=== PATIENT | female | born 1990 | race Caucasian/White ===

== ENCOUNTER → 2017-05-09 | Outpatient (CLI) | payer OTHER ==
[~2017-05-09] MED LIST: IBUP80TA PO; VITAPRTA PO
[2017-05-09 17:47] LABS: BASO # 0.1 10^3/uL (0.0-0.2); BASO % 0.5 % (0.0-1.0); EOS # 0.2 10^3/uL (0.0-0.50); EOS % 2.1 % (0.0-3.0); IMMATURE GRANULOCYTE % 0.5 % (0-0); LYMPH # 1.7 10^3/uL (1.5-6.5); LYMPH % 18.1 % (24.0-44.0); MEAN CORPUSCULAR HEMOGLOBIN 25.6 pg (27.0-33.0); MEAN CORPUSCULAR HGB CONC 31.7 g/dl (32.0-36.5); MONO # 0.9 10^3/uL (0.0-0.8); NEUTROPHILS # 6.7 10^3/uL (1.8-7.7); NEUTROPHILS % 69.8 % (36.0-66.0); PLATELET COUNT, AUTOMATED 305 10^3/uL (150-450); RED CELL DISTRIBUTION WIDTH 13.9 % (11.5-14.5); WHITE BLOOD COUNT 9.6 10^3/uL (4.0-10.0)
[2017-05-09 18:12] LABS: ALT/SGPT 22 U/L (12-78); AST/SGOT 11 U/L (7-37); BILIRUBIN,TOTAL 0.2 MG/DL (0.2-1.0); CREATININE FOR GFR 0.62 MG/DL (0.55-1.02); GLOMERULAR FILTRATION RATE > 60.0 (>60); URIC ACID 5.2 MG/DL (2.6-6.0)
[2017-05-10 14:33] LABS: HBsAg Prenatal NEGATIVE (NEGATIVE)
== END ==
LOC: M LAB 15:40
PROVIDERS: ATTEND Advanced Practice Midwife
DX: Z3A.11 11 weeks gestation of pregnancy (principal)

== ENCOUNTER → 2017-05-11 | Outpatient (REF) | payer OTHER ==
[2017-05-11 14:12] LABS: CREATININE, SERUM 0.6 MG/DL (0.6-1.0); TOTAL VOLUME, URINE 4500 ML
[2017-05-11 14:38] LABS: CREATININE CLEARANCE, URINE 340.1 ML/MIN (75-115)
== END ==
LOC: M LAB REF 13:54
PROVIDERS: ATTEND Advanced Practice Midwife
DX: Z36.89 Encounter for other specified antenatal screening (principal); Z3A.11 11 weeks gestation of pregnancy

== ENCOUNTER → 2017-06-27 | Outpatient (CLI) | payer OTHER | LOC: M RAD 10:54 | DX: Z36.89 Encounter for other specified antenatal screening (principal); Z3A.16 16 weeks gestation of pregnancy | CPT/HCPCS: 76811 ==

== ENCOUNTER 2017-06-28 09:56 | Day surgery (SDC) | payer OTHER ==
[2017-06-28] MEDS: LR 1,000 ML IV (10:30)
[2017-06-28 10:31] LABS: HEMATOCRIT 39.5 % (36.0-47.0); HEMOGLOBIN 12.7 g/dl (12.0-16.0); MEAN CORPUSCULAR HGB CONC 32.2 g/dl (32.0-36.5); MEAN CORPUSCULAR VOLUME 77.8 fl (80.0-96.0); PLATELET COUNT, AUTOMATED 334 10^3/uL (150-450); RED BLOOD COUNT 5.08 10^6/uL (4.00-5.40); RED CELL DISTRIBUTION WIDTH 13.4 % (11.5-14.5)
[2017-06-28] MEDS: SILVER NITRATE APPLICATOR As Ordered (11:01)
[2017-06-28] MEDS ORDERED: DOXYCYCLINE HYCLATE 100 MG in D5W MINI-BAG PLUS 100 ML IV (11:13)
[2017-06-28] MEDS: DOXYCYCLINE HYCLATE 100 MG in D5W MINI-BAG PLUS 100 ML IV (11:42)
[2017-06-28] MEDS: miSOPROStol 200 MCG TAB (S0191) As Ordered (12:40)
[2017-06-28] MEDS: METHYLERGONOVINE MALEATE 0.2 MG/ML VIAL (J2210) As Ordered (12:48)
[2017-06-28] MEDS: CARBOPROST TROMETHAMINE 250 MCG/ML AMP As Ordered (12:53)
[2017-06-28] MEDS ORDERED: ONDANSETRON 4MG/2ML VIAL (J2405) As Ordered ×2 (13:13→13:30)
[2017-06-28] MEDS ORDERED: METOCLOPRAMIDE INJ 10MG/2ML VIAL (J2765) As Ordered (13:13)
[2017-06-28] MEDS: ONDANSETRON 4MG/2ML VIAL (J2405) IV (13:23)
[2017-06-28] MEDS: METOCLOPRAMIDE INJ 10MG/2ML VIAL (J2765) IV (13:23)
[2017-06-28] MEDS ORDERED: LIDOCAINE 2% INJ 100 MG/5 ML SDV (FOR ANES.) As Ordered (13:29)
[2017-06-28] MEDS ORDERED: GLYCOPYRROLATE INJ 0.2 MG/ML 2 ML VIAL As Ordered ×2 (13:29)
[2017-06-28] MEDS ORDERED: ROCURONIUM BROMIDE 50 MG/5 ML VIAL As Ordered ×2 (13:29)
[2017-06-28] MEDS ORDERED: fentaNYL 100 MCG/2 ML INJECTION (J3010) As Ordered (13:29)
[2017-06-28] MEDS ORDERED: MIDAZOLAM INJ 2 MG/2 ML VIAL (J2250) As Ordered (13:29)
[2017-06-28] MEDS ORDERED: PROPOFOL 200 MG/20 ML VIAL As Ordered ×2 (13:29)
[2017-06-28] MEDS ORDERED: NEOSTIGMINE 10 MG/10 ML VIAL (J2710) As Ordered (13:29)
[2017-06-28] MEDS ORDERED: PERCOCET 5MG/325MG TAB PO (13:30)
[2017-06-28] MEDS ORDERED: HYDROmorphone HCL 1 MG/ML SYRINGE (J1170) IV (13:30)
[2017-06-28] MEDS ORDERED: KETOROLAC 60 MG/2 ML VIAL (J1885) As Ordered (13:30)
[2017-06-28] MEDS ORDERED: dexameTHASONE 4 MG/ML 1ML VIAL (J1100) As Ordered (13:30)
[2017-06-28] MEDS ORDERED: fentaNYL 100 MCG/2 ML INJECTION (J3010) IV (13:30)
[2017-06-28] MEDS: DOXYCYCLINE HYCLATE 100 MG TAB PO (14:19)
[2017-06-28] MEDS: PERCOCET 5MG/325MG TAB PO (14:31)
== END 2017-06-28 15:58 | disposition home or self-care (01) ==
LOC: M SDC 09:56
DX: O02.1 Missed abortion (principal); I10 Essential (primary) hypertension; J45.909 Unspecified asthma, uncomplicated; Z88.2 Allergy status to sulfonamides; Z79.899 Other long term (current) drug therapy
CPT/HCPCS: 59821

== ENCOUNTER → 2017-07-27 | Outpatient (CLI) | payer OTHER ==
[2017-07-27 13:02] LABS: ESTIMATED AVERAGE GLUCOSE 114 MG/DL (60-110); HEMOGLOBIN A1c 5.6 %
[2017-07-29 14:15] LABS: ANTI THROMBIN 3 ANTIGEN IMMUNO 79 % (72-124); ANTI THROMBIN 3 FUNCT ACTIVITY 99 % (75-135); PROTEIN C FUNCTIONAL ACTIVITY 142 % (73-180); PROTEIN S FUNCTIONAL ACTIVITY 93 % (63-140)
[2017-07-31 14:12] LABS: ANTI DOUBLE STRAND-DNA AB 1 IU/mL (0-9); CARDIOLIPIN IGA ANTIBODY <9 APL U/mL (0-11); CARDIOLIPIN IGG ANTIBODY <9 GPL U/mL (0-14); CARDIOLIPIN IGM ANTIBODY <9 MPL U/mL (0-12)
== END ==
LOC: M LAB 10:06
DX: O02.1 Missed abortion (principal)
CPT/HCPCS: 84443

== ENCOUNTER → 2017-08-15 | Outpatient (CLI) | payer OTHER | LOC: M LAB 17:16 | DX: O36.4XX1 Maternal care for intrauterine death, fetus 1 (principal); Z3A.00 Weeks of gestation of pregnancy not specified | CPT/HCPCS: 36415 ==

== ENCOUNTER → 2018-09-21 | Outpatient (CLI) | payer OTHER ==
[2018-09-21 17:12] LABS: FREE T4 1.11 NG/DL (0.76-1.46); THYROID STIMULATING HORMONE 1.6 uIU/ML (0.358-3.740)
[2018-09-21 17:24] LABS: HEMOGLOBIN A1c 5.8 %
[2018-09-21 17:26] LABS: HEMATOCRIT 40.9 % (36.0-47.0); HEMOGLOBIN 12.6 g/dl (12.0-15.5); MEAN CORPUSCULAR HEMOGLOBIN 24.7 pg (27.0-33.0); MEAN CORPUSCULAR HGB CONC 30.8 g/dl (32.0-36.5); PLATELET COUNT, AUTOMATED 331 10^3/uL (150-450); RED BLOOD COUNT 5.11 10^6/uL (4.00-5.40); WHITE BLOOD COUNT 8.5 10^3/uL (4.0-10.0)
== END ==
LOC: M WUC 11:42
PROVIDERS: ATTEND Obstetrics & Gynecology
DX: Z12.4 Encounter for screening for malignant neoplasm of cervix (principal); N91.4 Secondary oligomenorrhea

== ENCOUNTER 2019-01-24 19:22 | Emergency (ER) | payer OTHER ==
[~2019-01-24] VITALS: Ht 172.7 cm; Wt 170.5 kg
[~2019-01-24 19:22] MED LIST changes: -LABE10TAB PO
[2019-01-24] MEDS ORDERED: LABE10TAB PO (19:30)
[2019-01-24 20:14] LABS: BASO # 0.1 10^3/uL (0.0-0.2); BASO % 0.7 % (0.0-1.0); EOS # 0.2 10^3/uL (0.0-0.50); EOS % 2.2 % (0.0-3.0); HEMATOCRIT 38.7 % (36.0-47.0); HEMOGLOBIN 12.3 g/dl (12.0-15.5); LYMPH # 2.2 10^3/uL (1.5-6.5); LYMPH % 21.4 % (24.0-44.0); MEAN CORPUSCULAR HEMOGLOBIN 26.5 pg (27.0-33.0); MEAN CORPUSCULAR HGB CONC 31.8 g/dl (32.0-36.5); MEAN CORPUSCULAR VOLUME 83.2 fl (80.0-96.0); MONO # 0.8 10^3/uL (0.0-0.8); NEUTROPHILS # 6.9 10^3/uL (1.8-7.7); NEUTROPHILS % 67.1 % (36.0-66.0); PLATELET COUNT, AUTOMATED 310 10^3/uL (150-450); RED BLOOD COUNT 4.65 10^6/uL (4.00-5.40); WHITE BLOOD COUNT 10.2 10^3/uL (4.0-10.0)
[2019-01-24 20:37] LABS: ALBUMIN 3.5 GM/DL (3.2-5.2); ALT/SGPT 31 U/L (12-78); BILIRUBIN,DIRECT < 0.1 MG/DL (0.0-0.2); BILIRUBIN,TOTAL 0.3 MG/DL (0.2-1.0); BLOOD UREA NITROGEN 10 MG/DL (7-18); CALCIUM LEVEL 8.9 MG/DL (8.5-10.1); CARBON DIOXIDE LEVEL 30 MEQ/L (21-32); CHLORIDE LEVEL 109 MEQ/L (98-107); CREATININE FOR GFR 0.81 MG/DL (0.55-1.30); GLOMERULAR FILTRATION RATE > 60.0 (>60); GLUCOSE, FASTING 86 MG/DL (70-100); LIPASE 68 U/L (73-393); POTASSIUM SERUM 4.2 MEQ/L (3.5-5.1); SODIUM LEVEL 143 MEQ/L (136-145); TOTAL PROTEIN 7.4 GM/DL (6.4-8.2)
[2019-01-24] MEDS ORDERED: NS 1,000 ML IV ONE (22:00)
[2019-01-24] MEDS ORDERED: ISOVUE-370 76% 100ML VIAL (Q9967) As Ordered ONE ×2 (22:07→22:20)
--- NOTE | 2019-01-25 00:05 | REPVR ---
EXAM: CT Abdomen and Pelvis With Contrast EXAM DATE/TIME: 01/24/2019 10:12 PM CLINICAL HISTORY: 28 years old, female; Abdominal pain; Localized; Right Lower Quadrant (RLQ); Additional Info: RLQ pain, R/O appy, Infiltration occurred during exam new iv started and exam repeated with 50cc. TECHNIQUE: Imaging protocol: Axial computed tomography images of the abdomen and pelvis with intravenous contrast. Coronal and sagittal reformatted images were created and reviewed. Radiation optimization: All CT scans at this facility use at least one of these dose optimization techniques: automated exposure control; mA and/or kV adjustment per patient size (includes targeted exams where dose is matched to clinical indication); or iterative reconstruction. Contrast material: ISOVUE 370;Contrast volume: 50 ml;Contrast route: IV; COMPARISON: OBS LIMITED STORM US 07/13/2015 1:06 PM FINDINGS: Liver: Normal. No mass. Gallbladder and bile ducts: Suspect 1.5 cm gallstone in the neck of the gallbladder. No gallbladder wall thickening. No ductal dilation. Pancreas: Normal. No ductal dilation. Spleen: Normal. No splenomegaly. Adrenals: Normal. No mass. Kidneys and ureters: Normal. No hydronephrosis. Stomach and bowel: Abnormal bowel dilatation. No abnormal bowel wall thickening. No evidence of bowel strangulation. Appendix: Appendix is normal. Intraperitoneal space: Normal. No free air. No significant fluid collection. Vasculature: Normal. No abdominal aortic aneurysm. Lymph nodes: No enlarged lymph nodes. Multiple small mesenteric nodes. Bladder: Unremarkable as visualized. Reproductive: Uterus is normal. Bones/joints: No acute fracture. No dislocation. Moderate degenerative spine. Transitional lumbosacral vertebra. Soft tissues: Small umbilical hernia containing fat. Large lower ventral abdominal hernia containing loops of small bowel. There is no evidence of strangulation. There is dependent subcutaneous edema. IMPRESSION: 1. Appendix is unremarkable. 2. Suspect gallstone in the neck of the gallbladder. No evidence of acute cholecystitis. 3. Large lower ventral abdominal hernia containing loops of bowel. 4. Additional findings as described. Electronically signed by: John Hansen On 01/25/2019 00:04:59 AM
[2019-01-25 00:58] VITALS: BP 135/75
== END 2019-01-25 01:01 | disposition home or self-care (01) ==
LOC: M ED 19:22
DX: K43.9 Ventral hernia without obstruction or gangrene (principal); K80.20 Calculus of gallbladder without cholecystitis without obstruction; I10 Essential (primary) hypertension; J45.909 Unspecified asthma, uncomplicated; K21.9 Gastro-esophageal reflux disease without esophagitis; Z79.899 Other long term (current) drug therapy; Z88.1 Allergy status to other antibiotic agents; Z88.2 Allergy status to sulfonamides
CPT/HCPCS: 36415; 74177; 80048; 80076; 81001; 83690; 84702; 85025; 99284; Q9967

== ENCOUNTER → 2019-01-24 | Outpatient (REF) | payer OTHER ==
[~2019-01-24] MED LIST changes: +LABE10TAB PO
[2019-01-24 22:10] LABS: CHLAMYDIA DNA AMPLIFICATION NEGATIVE (NEGATIVE); GC DNA AMPLIFICATION NEGATIVE (NEGATIVE)
== END ==
LOC: M SFHCLERA 18:20
PROVIDERS: ATTEND Nurse Practitioner Family
DX: R10.9 Unspecified abdominal pain (principal)

== ENCOUNTER → 2019-02-05 | Outpatient (REF) | payer OTHER ==
[~2019-02-05] MED LIST changes: +LABE10TAB PO
[2019-02-05 22:35] LABS: CHLAMYDIA DNA AMPLIFICATION NEGATIVE (NEGATIVE); GC DNA AMPLIFICATION NEGATIVE (NEGATIVE)
== END ==
LOC: M SFHCLERA 14:38
PROVIDERS: ATTEND Nurse Practitioner Family
DX: A59.9 Trichomoniasis, unspecified (principal)

== ENCOUNTER → 2019-04-22 | Outpatient (REF) | payer OTHER ==
[2019-04-22 22:11] LABS: CHLAMYDIA DNA AMPLIFICATION NEGATIVE (NEGATIVE); GC DNA AMPLIFICATION NEGATIVE (NEGATIVE)
== END ==
LOC: M SFHCLERA 15:28
PROVIDERS: ATTEND Nurse Practitioner Family
DX: R30.0 Dysuria (principal)

== ENCOUNTER 2019-05-07 10:42 | Emergency (ER) | payer OTHER ==
[~2019-05-07] VITALS: Ht 170.2 cm; Wt 172.0 kg
[2019-05-07 10:43] VITALS: BP 150/85
[2019-05-07] MEDS ORDERED: ESCI10TA2 (10:51)
[2019-05-07] MEDS ORDERED: CYCL10TA PO (11:14)
[2019-05-07] MEDS ORDERED: NAPR-837 PO (11:14)
== END 2019-05-07 11:42 | disposition home or self-care (01) ==
LOC: M ED 10:42
DX: M62.830 Muscle spasm of back (principal); Z88.2 Allergy status to sulfonamides

== ENCOUNTER → 2019-08-06 | Outpatient (CLI) | payer OTHER ==
[~2019-08-06] MED LIST changes: +CYCL10TA PO; +ESCI10TA2; +NAPR-837 PO
[2019-08-06 15:57] LABS: BASO # 0.1 10^3/uL (0.0-0.2); BASO % 0.4 % (0.0-1.0); EOS # 0.2 10^3/uL (0.0-0.5); EOS % 1.4 % (0.0-3.0); HEMATOCRIT 37.3 % (36.0-47.0); LYMPH % 16.8 % (24.0-44.0); MEAN CORPUSCULAR HEMOGLOBIN 26.2 pg (27.0-33.0); MEAN CORPUSCULAR HGB CONC 32.2 g/dl (32.0-36.5); MEAN CORPUSCULAR VOLUME 81.4 fl (80.0-96.0); MONO % 8.2 % (0.0-5.0); NEUTROPHILS # 8.5 10^3/uL (1.5-8.5); NEUTROPHILS % 72.3 % (36.0-66.0); PLATELET COUNT, AUTOMATED 311 10^3/uL (150-450); RED BLOOD COUNT 4.58 10^6/uL (4.00-5.40); WHITE BLOOD COUNT 11.8 10^3/uL (4.0-10.0)
[2019-08-06 16:22] LABS: TOTAL PROTEIN,RANDOM URINE 14.3 MG/DL (0.0-12.0)
[2019-08-06 16:33] LABS: HEMOGLOBIN A1c 5.4 %
[2019-08-06 17:15] LABS: CREATININE FOR GFR 0.66 MG/DL (0.55-1.30); GLOMERULAR FILTRATION RATE > 60.0 (>60)
[2019-08-06 17:16] LABS: ALT/SGPT 28 U/L (12-78); BILIRUBIN,TOTAL 0.4 MG/DL (0.2-1.0); GLUCOSE CHALLENGE TEST 1 HOUR 99 MG/DL (LESS THAN 140); LDH LACTATE DEHYDROGENASE 173 U/L (84-246); URIC ACID 4.9 MG/DL (2.6-6.0)
[2019-08-06 17:40] LABS: CHLAMYDIA DNA AMPLIFICATION NEGATIVE (NEGATIVE); GC DNA AMPLIFICATION NEGATIVE (NEGATIVE)
[2019-08-07 11:14] LABS: RUBELLA IgG QUALITATIVE IMMUNE (IMMUNE)
[2019-08-07 11:43] LABS: HEPATITIS C VIRUS ABY INDEX < 0.0 INDEX (<0.8); HIV 1&2 SCREEN CENTAUR NEGATIVE (NEGATIVE)
[2019-08-07 12:18] LABS: HEPATITIS B SURFACE ANTIGEN NEGATIVE (NEGATIVE)
== END ==
LOC: M LAB 14:22
PROVIDERS: ATTEND Advanced Practice Midwife
DX: O99.211 Obesity complicating pregnancy, first trimester (principal)

== ENCOUNTER → 2019-09-05 | Outpatient (REF) | payer OTHER | LOC: M PLALAB 14:19 | PROVIDERS: ATTEND Advanced Practice Midwife | DX: O99.211 Obesity complicating pregnancy, first trimester (principal) ==

== ENCOUNTER → 2019-09-07 | Outpatient (REF) | payer OTHER | LOC: M SFHCLERA 15:09 | PROVIDERS: ATTEND Physician Assistant | DX: R50.9 Fever, unspecified (principal) ==

== ENCOUNTER → 2019-10-11 | Outpatient (CLI) | payer OTHER ==
[~2019-10-11] MED LIST changes: +CYCL-707 PO; -CYCL10TA PO
--- NOTE | 2019-10-11 15:22 | REP ---
REASON FOR EXAM: anatomy. There are no priors for comparison. Multiple ultrasonographic images of the gravid uterus show a single living intrauterine gestation in variable positions. Doppler interrogation of the heart shows a heart rate of 155 beats per minute. The placenta is anterior and not low-lying. Doppler interrogation of the heart shows the heart rate of 155 beats per minute. The placenta is anterior and not low-lying. The cervix measures 3.8 cm in length and is closed. Evaluation of the maternal adnexal spaces show no abnormalities. BPD 4.7 cm = 20 weeks 1 day HC 17.2 cm = 19 weeks 5 days AC 15.2 cm = 20 weeks 3 days FL 3.1 cm = 19 weeks 3 days The estimated weight is 325 grams, which is at the 72nd percentile for 05-besc-2-day gestational age. anatomical structures visualized as unremarkable are as follows: Thalami, cavum septum pellucidum, cerebellum, cisterna magna, cerebral ventricles, four chamber heart, and upper lip. Structures suboptimally visualized are as follows: spine, kidneys, cord insertion, three- vessel umbilical cord, right and left ventricular outflow tracts, stomach, urinary bladder, and upper and lower extremities. IMPRESSION: Single living intrauterine gestation as described above with an estimated gestational age of 19 weeks 5 days via composite criteria and estimated date of delivery of 03/01/2020 by today's exam. No anomalies were detected, however, I recommend a followup examination to better visualized structures not well seen today as described above.
== END ==
LOC: M WHC 10:08
PROVIDERS: ATTEND Advanced Practice Midwife
DX: O10.912 Unspecified pre-existing hypertension complicating pregnancy, second trimester (principal); Z3A.19 19 weeks gestation of pregnancy

== ENCOUNTER → 2019-10-24 | Outpatient (REF) | payer OTHER | LOC: M LAB REF 17:13 | PROVIDERS: ATTEND Advanced Practice Midwife | DX: O99.212 Obesity complicating pregnancy, second trimester (principal) ==

== ENCOUNTER → 2019-11-06 | Outpatient (CLI) | payer OTHER ==
--- NOTE | 2019-11-07 03:31 | REP ---
Clinical: Anatomical evaluation. Comparison: 10/11/2019 . Findings: Examination demonstrates a single live intrauterine in cephalic presentation. motion is identified by technologist. Placenta is noted anterior and grade I without evidence for placenta previa or abruption. Amniotic fluid volume is normal. Cervix measures 3.9 cm in length and appears closed. No evidence for nuchal cord. 4 cm hypoechoic lesion in the posterior uterus may represent fibroid versus contraction. Gestational age by LMP 23 weeks 0 days with GRAYSON 03/04/2020 . Gestational age by current measurements 24 weeks 4 days with GRAYSON 02/22/2020 . FHR equals 146 beats per minute. Estimated weight 862 grams (> 97 percentile based on age by LMP ). Anatomical assessment demonstrates normal structures including cranium, choroid plexus, cavum, cerebellum/posterior fossa, facial features, lungs, cardiac ventricular outflow tracts, diaphragm, stomach, cord insertion/three-vessel cord, kidneys/bladder, and extremities. Impression: 1. Single live intrauterine in cephalic presentation. Estimated weight is greater than expected based on age by LMP. 2. Limited evaluation of the spine again noted due to positioning. 3. Suspected 4 cm posterior intramural fibroid.
== END ==
LOC: M WHC 12:52
PROVIDERS: ATTEND Advanced Practice Midwife
DX: Z36.2 Encounter for other antenatal screening follow-up (principal); O99.212 Obesity complicating pregnancy, second trimester; O26.842 Uterine size-date discrepancy, second trimester; Z3A.23 23 weeks gestation of pregnancy

== ENCOUNTER → 2019-11-21 | Outpatient (CLI) | payer OTHER ==
--- NOTE | 2019-11-21 19:27 | REP ---
Clinical: Anatomical evaluation. Comparison: 11/06/2019 . Findings: Examination demonstrates a single live intrauterine in transverse presentation. motion is identified by technologist. Placenta is noted anterior and grade I without evidence for placenta previa or abruption. Amniotic fluid volume is normal. Cervix measures 4.7 cm in length and appears closed. No evidence for nuchal cord. Gestational age by LMP 25 weeks 1 day with GRAYSON 03/04/2020 . Gestational age by current measurements 26 weeks 0 days with GRAYSON 02/27/2020 . FHR equals 153 beats per minute. Estimated weight 983 grams ( 94 percentile). Anatomical assessment demonstrates normal structures including cranium, heart/ventricular outflow tracts, stomach, cord insertion, bladder, and spine. Impression: Single live intrauterine in transverse lie demonstrating appropriate interval growth. In conjunction with prior examination anatomical assessment is complete and normal.
== END ==
LOC: M WHC 16:04
PROVIDERS: ATTEND Specialist
DX: Z36.89 Encounter for other specified antenatal screening (principal); Z3A.26 26 weeks gestation of pregnancy

== ENCOUNTER → 2019-11-29 | Outpatient (REF) | payer OTHER ==
[2019-11-29 17:14] LABS: HEMATOCRIT 33.3 % (36.0-47.0); HEMOGLOBIN 10.2 g/dl (12.0-15.5); MEAN CORPUSCULAR HEMOGLOBIN 24.3 pg (27.0-33.0); MEAN CORPUSCULAR HGB CONC 30.6 g/dl (32.0-36.5); MEAN CORPUSCULAR VOLUME 79.3 fl (80.0-96.0); PLATELET COUNT, AUTOMATED 373 10^3/uL (150-450); WHITE BLOOD COUNT 14.2 10^3/uL (4.0-10.0)
== END ==
LOC: M PLALAB 13:27
PROVIDERS: ATTEND Specialist
DX: Z34.82 Encounter for supervision of other normal pregnancy, second trimester (principal)

== ENCOUNTER 2019-12-12 00:45 | Outpatient (CLI) | payer OTHER ==
[~2019-12-12] VITALS: Ht 172.7 cm; Wt 175.4 kg
[2019-12-12 01:13] VITALS: BP 137/66
[2019-12-12 02:12] VITALS: BP 131/66
--- NOTE | 2019-12-12 03:33 | REPVR ---
PROCEDURE INFORMATION: Exam: US Biophysical Profile Without Non-Stress Test Exam date and time: 12/12/2019 2:55 AM Age: 29 years old Clinical indication: status abnormalities: ; movements, decreased; Single gestation; Third trimester (28 wks 0 days until delivery); ; Additional info: Decreased movement TECHNIQUE: Imaging protocol: US biophysical profile without non-stress testing. COMPARISON: US OBS FOLLOW UP OR REPEAT 2019-11-21 16:36 FINDINGS: Heart rate: heart rate 143 bpm. Placenta: Anterior placenta. Grade 1 placenta. Amniotic fluid index: Normal amniotic fluid index of 16.1 cm. BIOPHYSICAL PROFILE: Breathin/2 Gross body movements: 2/2 tone: 2/2 Qualitative amniotic fluid: 2/2 Biophysical Profile Score: 8/8 DOPPLER: Umbilical artery Doppler: Umbilical cord S/D ratio of 2.31 (normal of 2.59-3.95). Resistive index of 0.57 (0.59-0.75) Peak systolic velocity of the umbilical cord is 46 cm/s. End-diastolic flow velocity is 20 cm/s. MATERNAL ANATOMY: Cervix: 4.4 cm cervical length. IMPRESSION: Biophysical profile 8/. Of note, the S/D ratio of the umbilical cord is mildly low at 2.31. Electronically signed by: Denys Wall On 12/12/2019 03:33:07 AM
--- NOTE | 2019-12-12 10:37 | IPNPDOC ---
Text Note Date of Service The patient was seen on 12/12/19. NOTE Subjective: Patient is a 29-year-old female who is 28.1 weeks gestation who is a who presents to L&D with complaints of decreased movement. She reports she has only felt her baby a few times today. She denies leaking of fluid, vaginal bleeding, or contractions. Her has been complicated by morbid obesity and CHTN. Her BMI is 58. After arriving to the unit she reports that her baby has been very active. Objective: VS and ultrasound see below. FHR 140, moderate variability, positive accelerations, no decelerations. Contractions none. Assessment: IUP at 28.1 weeks gestation, decreased movement Plan: BPP and NST with 04/04. Patient reports active movement. She is discharged to home with precautions. Reviewed access to care, kick count, labor signs, and danger signs to report. She is to continue with her routine OB care. VS,Fishbone, I+O VS, Fishbone, I+O Vital Signs Date Time Temp Pulse Resp B/P (MAP) Pulse Ox O2 Delivery O2 Flow Rate FiO2 12/12/19 02:12 100 20 131/66 (87) 12/12/19 01:13 97.9 EXAMINATION REQUESTED: BPP W/O NON STRESS TEST REASON FOR PATIENT VISIT: DECREASED MOVEMENT REASON FOR EXAMINATION: decreased movement PROCEDURE INFORMATION: Exam: US Biophysical Profile Without Non-Stress Test Exam date and time: 12/12/2019 2:55 AM Age: 29 years old Clinical indication: status abnormalities: ; movements, decreased; Single gestation; Third trimester (28 wks 0 days until delivery); ; Additional info: Decreased movement TECHNIQUE: Imaging protocol: US biophysical profile without non-stress testing. COMPARISON: US OBS FOLLOW UP OR REPEAT 2019-11-21 16:36 FINDINGS: Heart rate: heart rate 143 bpm. Placenta: Anterior placenta. Grade 1 placenta. Amniotic fluid index: Normal amniotic fluid index of 16.1 cm. BIOPHYSICAL PROFILE: Breathin/2 Gross body movements: 2/2 tone: 2/2 Qualitative amniotic fluid: 2/2 Biophysical Profile Score: 8/8 DOPPLER: Umbilical artery Doppler: Umbilical cord S/D ratio of 2.31 (normal of 2.59-3.95). Resistive index of 0.57 (0.59-0.75) Peak systolic velocity of the umbilical cord is 46 cm/s. End-diastolic flow velocity is 20 cm/s. MATERNAL ANATOMY: Cervix: 4.4 cm cervical length. IMPRESSION: Biophysical profile 01/31. Of note, the S/D ratio of the umbilical cord is mildly low at 2.31. Electronically signed by: Denys Wall On 12/12/2019 03:33:07 AM MATHIEU COLLINS CNM Dec 12, 2019 10:37
== END 2019-12-12 03:50 | disposition home or self-care (01) ==
LOC: M LDO 00:45
PROVIDERS: ATTEND Advanced Practice Midwife
DX: O36.8130 Decreased fetal movements, third trimester, not applicable or unspecified (principal); O10.013 Pre-existing essential hypertension complicating pregnancy, third trimester; O99.213 Obesity complicating pregnancy, third trimester; E66.01 Morbid (severe) obesity due to excess calories; Z3A.28 28 weeks gestation of pregnancy

== ENCOUNTER → 2020-01-01 | Outpatient (CLI) | payer OTHER ==
[~2020-01-01] MED LIST changes: +DOCU100C16 PO; +LABE200T32 PO; +PERCOCET PO; +PRENTAB9 PO; +TUMS500C PO
--- NOTE | 2020-01-01 14:18 | REP ---
OB ULTRASOUND: Real-time sonographic evaluation of the gravid uterus performed. There is a single living intrauterine gestation. The estimated gestational age is 31 weeks 0 days, EDC 03/04/2020. Today's measurements indicate appropriate growth. Biometry and Growth: BPD 81 mm = 32 weeks 3 days, 70th percentile HC 296 mm = 32 weeks 5 days, 76th percentile AC 272 mm = 31 weeks 2 days, 54th percentile FL 60 mm = 31 weeks 1 day, 52nd percentile HC/AC ratio 1.09 within normal range of 0.96 to 1.15. Estimated weight 1772 grams, 52nd percentile. Cervical length: Closed and measures 4.2 cm in length. heart rate: 138 beats per minute. position: Breech. Placenta: Anterior and grade 1 with no previa or abruption. Amniotic fluid: Within normal limits, STORM 11.8 within normal range of 8.8 to 23.8. Biophysical score: 8/8. S/D ratio of the umbilical artery: 1.9.
== END ==
LOC: M WHC 10:30
PROVIDERS: ATTEND Advanced Practice Midwife
DX: O10.919 Unspecified pre-existing hypertension complicating pregnancy, unspecified trimester (principal); Z3A.31 31 weeks gestation of pregnancy

== ENCOUNTER → 2020-01-22 | Outpatient (CLI) | payer OTHER | LOC: M WHC 01-21 18:33 | PROVIDERS: ATTEND Advanced Practice Midwife | DX: O10.913 Unspecified pre-existing hypertension complicating pregnancy, third trimester (principal); O34.211 Maternal care for low transverse scar from previous cesarean delivery; Z3A.00 Weeks of gestation of pregnancy not specified ==

== ENCOUNTER → 2020-01-30 | Outpatient (CLI) | payer OTHER ==
--- NOTE | 2020-03-19 07:40 | REP ---
OBSTETRIC ULTRASOUND Dealy in reporting results from hospital computer system malfunction from malware / ransomware. REASON FOR EXAM: biophysical profile in a patient with hypertension. FINDINGS: There is a single intrauterine gestation in a cephalic presentation. The placenta is anterior, grade 2, without previa and without abruptio. heart rate is 143 beats per minute. Estimated date of confinement (EDC) based on prior studies is 03/04/2020. The amniotic fluid volume subjectively is normal. The amniotic fluid index measures 16.6. BIOPHYSICAL PROFILE: motion 2.0 breathing 2.0 tone 2.0 Amniotic fluid volume 2.0 Total Score 8/8 The Doppler S/D ratio of the umbilical artery is 2.3. The resistive index is 0.56. MTDD
== END ==
LOC: M WHC 15:22
PROVIDERS: ATTEND Advanced Practice Midwife
DX: O10.919 Unspecified pre-existing hypertension complicating pregnancy, unspecified trimester (principal)

== ENCOUNTER → 2020-01-30 | Outpatient (REF) | payer OTHER | LOC: M SFHCWAGY 16:05 | PROVIDERS: ATTEND Advanced Practice Midwife | DX: Z34.90 Encounter for supervision of normal pregnancy, unspecified, unspecified trimester (principal); Z3A.00 Weeks of gestation of pregnancy not specified ==

== ENCOUNTER → 2020-02-06 | Outpatient (CLI) | payer OTHER ==
--- NOTE | 2020-03-19 07:36 | REP ---
FOLLOW-UP OBSTETRIC ULTRASOUND IN A PATIENT WITH CHRONIC HYPERTENSION FOR GROWTH, BIOPHYSICAL PROFILE, AND AMNIOTIC FLUID VOLUME Delay in reporting results from hospital computer malfunction from malware / ransomware. FINDINGS: There is a single intrauterine gestation in a transverse lie with the head to the maternal left. The placenta is anterior with grade 2 maturity. There is no placenta previa or abruptio. heart rate is 160 beats per minute. Composite gestational age by [facility] ultrasound is 34 weeks 3 days. Estimated date of delivery (GRAYSON) is 03/04/2020. Estimated weight is 2321. This is the 47th percentile. Amniotic fluid volume subjectively is normal. Amniotic fluid index is 10.37. BIOPHYSICAL PROFILE: motion 2 breathing 2 tone 2 Amniotic fluid volume 2 Total 01/31 No further ultrasound assessment is requested or performed at this time. MTDD
== END ==
LOC: M WHC 15:15
PROVIDERS: ATTEND Advanced Practice Midwife
DX: O10.913 Unspecified pre-existing hypertension complicating pregnancy, third trimester (principal); Z3A.34 34 weeks gestation of pregnancy

== ENCOUNTER 2020-02-12 05:11 | Inpatient (IN) | payer OTHER ==
[~2020-02-12] VITALS: Ht 170.2 cm; Wt 177.1 kg
[~2020-02-12 05:11] MED LIST changes: -DOCU100C16 PO; -LABE200T32 PO; -PERCOCET PO; -PRENTAB9 PO; -TUMS500C PO
[2020-02-12] MEDS ORDERED: TUMS500C PO (05:36)
[2020-02-12] MEDS ORDERED: PRENTAB9 PO (05:36)
[2020-02-12] MEDS ORDERED: LABE200T32 PO (05:36)
[2020-02-12] MEDS ORDERED: BICITRA 30ML SOLN UDC As Ordered ONE (06:37)
[2020-02-12] MEDS ORDERED: ceFAZolin 2 GM/D5W 50 ML IV BAG (J0690 PER 500MG) As Ordered ONE (06:37)
[2020-02-12] MEDS ORDERED: LACTATED RINGER'S 1000 ML IV STA (06:56)
[2020-02-12] MEDS ORDERED: LR 1,000 ML IV SCH ×2 (06:56→09:34)
[2020-02-12] MEDS ORDERED: BICITRA 30ML SOLN UDC PO ONE (07:00)
[2020-02-12] MEDS ORDERED: ceFAZolin SOD 2 GM in IV 1 EA IV ONE (07:00)
[2020-02-12 07:03] LABS: HEMATOCRIT 31.3 % (36.0-47.0); HEMOGLOBIN 9.5 g/dl (12.0-15.5); MEAN CORPUSCULAR HEMOGLOBIN 22.9 pg (27.0-33.0); MEAN CORPUSCULAR HGB CONC 30.4 g/dl (32.0-36.5); MEAN CORPUSCULAR VOLUME 75.4 fl (80.0-96.0); PLATELET COUNT, AUTOMATED 350 10^3/uL (150-450); RED BLOOD COUNT 4.15 10^6/uL (4.00-5.40); WHITE BLOOD COUNT 12.5 10^3/uL (4.0-10.0)
[2020-02-12] MEDS ORDERED: ONDANSETRON 4MG/2ML VIAL As Ordered ONE ×2 (07:23→09:42)
[2020-02-12] MEDS ORDERED: dexameTHASONE 4 MG/ML 1ML VIAL (J1100 PER 1MG) As Ordered ONE ×2 (07:23→09:26)
[2020-02-12] MEDS ORDERED: OXYTOCIN INJ 10 UNITS/ML VIAL (J2590) As Ordered ONE (07:23)
[2020-02-12] MEDS ORDERED: fentaNYL 100 MCG/2 ML INJECTION (J3010) As Ordered ONE (07:25)
[2020-02-12] MEDS ORDERED: MORPHINE PRES-FREE INJ 10 MG/10 ML VIAL (J2274) As Ordered ONE (07:25)
[2020-02-12] MEDS ORDERED: NALOXONE INJ 0.4MG/1ML VIAL (J2310 PER 1MG) IV PRN ×2 (07:59)
[2020-02-12] MEDS ORDERED: METOCLOPRAMIDE INJ 10MG/2ML VIAL (J2765 PER 1) IV PRN (07:59)
[2020-02-12] MEDS ORDERED: diphenhydrAMINE 50MG/ML VIAL (J1200) IV PRN (07:59)
[2020-02-12] MEDS ORDERED: ONDANSETRON 4MG/2ML VIAL IV PRN ×2 (07:59→10:00)
[2020-02-12] MEDS ORDERED: NALBUPHINE HCL 10 MG/ML AMP (J2300) IV PRN (07:59)
[2020-02-12] MEDS ORDERED: ePHEDrine SULFATE 25 MG/5 ML(5MG/ML) SYRINGE As Ordered ONE (08:15)
[2020-02-12] MEDS ORDERED: PHENYLephrine HCL 500 MCG/5 ML (100MCG/ML) SYRINGE (J2370) As Ordered ONE (08:50)
[2020-02-12] MEDS ORDERED: METOCLOPRAMIDE INJ 10MG/2ML VIAL (J2765 PER 1) As Ordered ONE (09:26)
[2020-02-12] MEDS ORDERED: OXYTOCIN 30 UNITS IN 0.9% NaCl 500ML IV BAG (J2590) As Ordered ONE (09:27)
[2020-02-12] MEDS ORDERED: OXYTOCIN DRIP 30 UNITS in IV 1 EA IV SCH (09:34)
[2020-02-12] MEDS ORDERED: MOM 30ML SUSPENSION UDC PO PRN (09:45)
[2020-02-12] MEDS ORDERED: RHOGAM 300 MCG (1500 IU) INJ (J2790) IM SCH (09:45)
[2020-02-12] MEDS ORDERED: MEASLES,MUMPS,RUBELLA VACCINE INJ (MMR-II) (90707) SC SCH (09:45)
[2020-02-12] MEDS ORDERED: ANUSOL HC CREAM 30GM TOP PRN (09:45)
[2020-02-12] MEDS ORDERED: ONDANSETRON 4 MG ORAL DISINTEGRATING TAB PO PRN (09:45)
[2020-02-12] MEDS ORDERED: PERCOCET 5MG/325MG TAB PO PRN ×2 (09:45)
[2020-02-12] MEDS ORDERED: fentaNYL 100 MCG/2 ML INJECTION (J3010) IV PRN (10:00)
[2020-02-12] MEDS ORDERED: MEPERIDINE INJ 25 MG/ML VIAL (J2175) IV PRN (10:00)
[2020-02-12] MEDS ORDERED: PROMETHAZINE INJ 25 MG/ML VIAL (J2550) As Ordered ONE (11:20)
[2020-02-12] MEDS ORDERED: PROMETHAZINE INJ 25 MG/ML VIAL (J2550) IV PRN (11:30)
[2020-02-12 12:45] VITALS: BP 124/65
[2020-02-12 13:15] VITALS: BP 137/64
[2020-02-12] MEDS: PRENATAL VITAMINS CHEWABLE TABLET PO SCH (13:33)
[2020-02-12] MEDS: DOCUSATE SODIUM 100 MG CAP PO SCH ×2 (13:33→20:52)
[2020-02-12 14:19] VITALS: BP 128/78
[2020-02-12] MEDS ORDERED: BOOSTRIX/ADACEL VACCINE (DIPHTH/PERTUSS/ACELL/TETANUS) 0.5ML SYR IM PRN (14:30)
[2020-02-12 15:15] VITALS: BP 129/60
[2020-02-12] MEDS: KETOROLAC 30 MG/ML 1ML VIAL IV SCH ×2 (15:37→20:53)
[2020-02-12 18:00] VITALS: BP 128/69
[2020-02-12 22:00] VITALS: BP 119/58
[2020-02-13 02:00] VITALS: BP_SYST 128; BP_SYST 129; BP_DIAS 65
[2020-02-13] MEDS: KETOROLAC 30 MG/ML 1ML VIAL IV SCH (02:59)
[2020-02-13 06:00] VITALS: BP 119/56
[2020-02-13 07:28] LABS: HEMATOCRIT 29.3 % (36.0-47.0); MEAN CORPUSCULAR HEMOGLOBIN 22.8 pg (27.0-33.0); MEAN CORPUSCULAR HGB CONC 30.7 g/dl (32.0-36.5); MEAN CORPUSCULAR VOLUME 74.4 fl (80.0-96.0); PLATELET COUNT, AUTOMATED 350 10^3/uL (150-450); RED BLOOD COUNT 3.94 10^6/uL (4.00-5.40); WHITE BLOOD COUNT 15.8 10^3/uL (4.0-10.0)
[2020-02-13 10:00] VITALS: BP 125/66
[2020-02-13] MEDS: IBUPROFEN 800 MG TAB PO SCH ×2 (10:19→18:49)
[2020-02-13] MEDS: DOCUSATE SODIUM 100 MG CAP PO SCH ×2 (10:19→20:24)
[2020-02-13] MEDS: PRENATAL VITAMINS CHEWABLE TABLET PO SCH (10:19)
[2020-02-13 14:00] VITALS: BP 131/66
[2020-02-13 18:00] VITALS: BP 128/74
[2020-02-13 22:00] VITALS: BP 133/62
[2020-02-14 02:00] VITALS: BP 137/75
[2020-02-14] MEDS: IBUPROFEN 800 MG TAB PO SCH ×2 (02:35→10:37)
[2020-02-14 06:00] VITALS: BP 135/69
--- NOTE | 2020-02-14 07:36 | ROOPDOC ---
[facility] Report Of Operation Report of Operation DATE OF PROCEDURE: 02/14/20 SURGEON: Casandra Son M.D. COMMUNITY SERVICE WORKER: Bertha Schrader CNM PROCEDURE: section PREOPERATIVE DIAGNOSIS: 1. History of prior section 2. Intrauterine at 39 weeks POSTOPERATIVE DIAGNOSIS: 1. History of prior section 2. Intrauterine at 39 weeks 3. Incisional hernia ANESTHESIA: Spinal ESTIMATED BLOOD LOSS: 500 mL URINE OUTPUT: 200 mL INTRAVENOUS FLUIDS: 2700 mL lactated Ringer solution PREOPERATIVE ANTIBIOTICS: 2 g of Ancef OPERATIVE FINDINGS: Liveborn female , Apgars 9 and 9. Weight was 3920 g, 8 lbs. 10 oz. Large surgical hernia. SPECIMENS: none DESCRIPTION OF PROCEDURE: After informed consent was obtained and written consent was reviewed. The patient was brought to the operating room where spinal anesthesia was placed. She was then placed in the supine position with a left lateral tilt. Howe catheter was placed and to gravity. Patient was then prepped and draped in the normal sterile fashion. A timeout operating room was performed identifying the patient, procedure be performed as well as drug allergies. Anesthesia was tested and deemed to be adequate. Pfannenstiel skin incision was made along the previous skin incision. With blunt dissection, there was a large amount of bowel that was noted in the subcutaneous tissue consistent with an incisional hernia. The edge of the hernia was identified and was extended. Mobius retractor was then placed. Next, a curvilinear incision was then made in the lower uterine segment. Amniotomy was performed, productive, clear fluid. The head was brought to the level of the incision atraumatically and delivered along the shoulders and corpus. The cord was clamped x2. The infant was brought over to the warmer with a good cry. Placenta was drained and delivered grossly intact. The uterus was cleared of all clots and debris and the uterine incision was then closed in 2 layers using 0 Vicryl, first in a running locking fashion followed by second layer for imbrication. The abdomen was suctioned. Surgical sites reinspected and noted be hemostatic. The retractor was then removed. The fascia was then closed using looped 1-0 PDS in a running nonlocking fashion. The subcutaneous tissues was then irrigated and suctioned. Subcutaneous tissue was reapproximated using 3-0 Vicryl. Several subdermal stitch is placed using 3-0 Vicryl and the skin was closed with 4-0 Monocryl and subcuticular fashion. This incision was then cleaned and dried and was dressed. The patient was then taken to recovery in stable condition. All counts were correct. My surgical elastic knitter hand frame Bertha Schrader played in an essential role during the operation. She assisted with tissue identification retraction, delivery of the , as well as wound closure. CASANDRA SON MD. Feb 14, 2020 07:36
--- NOTE | 2020-02-14 07:38 | IPNPDOC ---
Progress Note Date of Service: Feb 13, 2020 Day#: 1 Progress Note SUBJECT: Doing well without complaints. Ambulating, voiding and pain is well-c ontrolled. Reports minimal lochia. +breast feeding OBJECTIVE: VITAL SIGNS: Within normal limits, afebrile. Alert and oriented times three. Abdomen: Fundus firm at U-2. Soft, NTTP. Incision: Dressed Ext: neg calf tenderness. ASSESSMENT: day/postoperative #1 status post repeat section. Recovering in stable condition. PLAN: 1. Continue routine care 2. Discharge plans for tomorrow VS, I&O, 24H, Fishbone Vital Signs/I&O Vital Signs Date Time Temp Pulse Resp B/P (MAP) Pulse Ox O2 Delivery O2 Flow Rate FiO2 02/14/20 06:00 97.6 95 18 135/69 (91) 97 Room Air TERESA MINOR MD. Feb 14, 2020 07:38
[2020-02-14] MEDS ORDERED: IBUP80TA PO (07:55)
[2020-02-14] MEDS ORDERED: DOCU100C16 PO (07:55)
[2020-02-14] MEDS ORDERED: PERCOCET PO (07:55)
[2020-02-14] MEDS: DOCUSATE SODIUM 100 MG CAP PO SCH (08:09)
[2020-02-14] MEDS: PRENATAL VITAMINS CHEWABLE TABLET PO SCH (08:09)
--- NOTE | 2020-02-14 09:31 | DS.PDOC ---
Discharge Summary General Date of Admission Feb 12, 2020 at 05:11 Date of Discharge 02/14/2020 Attending Physician: TERESA MINOR MD. Discharge Summary PROCEDURES PERFORMED DURING STAY: 1. Repeat section. 2. Spinal. ADMITTING DIAGNOSES: 1. History of prior section. 2. Chronic hypertension. DISCHARGE DIAGNOSES: 1. History of prior section. 2. Chronic hypertension. COMPLICATIONS/CHIEF COMPLAINT: Chronic hypertension/Previous . HPI/ HOSPITAL COURSE: 29yo presented for scheduled section. Remarkable for large incisional hernia. Otherwise, uncomplicated. Productive of liveborn female infant, Apgars 9 and 9. Weight was 3920gms or 8lbs. 10oz. EBL 500ml. Patient did well postoperatively and by postoperatively day #2 had meet all discharge criteria and was discharge home in stable condition. DISCHARGE MEDICATIONS: Please see below. ALLERGIES: Please see below. PHYSICAL EXAMINATION ON DISCHARGE: VITAL SIGNS: Please see below. GENERAL: well appearing ABDOMINAL EXAMINATION: soft, nttp EXTREMITIES: negative for calf tenderness LABORATORY DATA: Please see below. ACTIVITY: 1. pelvic rest x 6 weeks 2. Reports severe pain, incision issues, fever or heavy vaginal bleeding. DIET: regular DISCHARGE PLAN: home DISPOSITION: home DISCHARGE INSTRUCTIONS: 1. followup in 2 weeks for incision check. DISCHARGE CONDITION: Stable. . Vital Signs/I&Os Vital Signs Date Time Temp Pulse Resp B/P (MAP) Pulse Ox O2 Delivery O2 Flow Rate FiO2 02/14/20 06:00 97.6 95 18 135/69 (91) 97 Room Air Discharge Medications Scheduled Calcium Carbonate (Tums) 200 Mg Tab.chew, 2 TAB PO QID for cough and congestion, (Reported) Docusate Sodium (Docusate Sodium) 100 Mg Capsule, 100 MG PO BID Ibuprofen (Ibuprofen) 800 Mg Tablet, 800 MG PO Q8H Labetalol HCl (Labetalol HCl) 200 Mg Tablet, 1 TAB PO BID, (Reported) No.137/Iron/Folic Acd ( Vitamin Tablet) 1 Each Tablet, 1 TAB PO DAILY, (Reported) Scheduled PRN Oxycodone/Acetaminophen (Oxycodone-Acetaminophen 5-325) 1 Each Tablet, 1-2 TAB PO Q6H PRN for SEVERE PAIN (PS 8-10) Allergies Coded Allergies: Sulfa (Sulfonamide Antibiotics) (Verified Allergy, Intermediate, HIVES, RASH, 01/24/19) TERESA MINOR MD. Feb 14, 2020 09:31
[2020-02-14 10:00] VITALS: BP 131/61
== END 2020-02-14 12:50 | disposition home or self-care (01) | DRG 540 ==
LOC: M LDI 05:11 → M OBS 12:42 → M PED 02-14 12:57 → M OBS 02-14 12:57 → M PED 02-14 12:58
PROVIDERS: ADMIT Obstetrics & Gynecology; ATTEND Obstetrics & Gynecology
PROC: 10D00Z1 Extraction of Products of Conception, Low, Open Approach (ICD-10-PCS; principal; 2020-02-14)
DX: O34.211 Maternal care for low transverse scar from previous cesarean delivery (principal); O10.02 Pre-existing essential hypertension complicating childbirth; Z3A.39 39 weeks gestation of pregnancy; K43.2 Incisional hernia without obstruction or gangrene; O99.62 Diseases of the digestive system complicating childbirth; Z37.0 Single live birth

== ENCOUNTER 2020-05-10 16:49 | Emergency (ER) | payer OTHER ==
[~2020-05-10] VITALS: Ht 170.2 cm; Wt 175.5 kg
[~2020-05-10 16:49] MED LIST changes: +DOCU100C16 PO; +LABE200T32 PO; +PERCOCET PO; +PRENTAB9 PO; +TUMS500C PO
[2020-05-10] MEDS ORDERED: CYCL5TAB PO (18:10)
[2020-05-10] MEDS ORDERED: IBUP80TA PO (18:10)
[2020-05-10] MEDS ORDERED: KETOROLAC 60MG 2ML VIAL As Ordered ONE (18:12)
[2020-05-10] MEDS ORDERED: KETOROLAC 60MG 2ML VIAL IM ONE (18:15)
[2020-05-10] MEDS ORDERED: CYCLOBENZAPRINE 10MG TABLET PO ONE (18:15)
[2020-05-10 18:37] VITALS: BP 137/83
== END 2020-05-10 18:38 | disposition home or self-care (01) ==
LOC: M ED 16:49
DX: M62.830 Muscle spasm of back (principal); J45.909 Unspecified asthma, uncomplicated; F32.9 Major depressive disorder, single episode, unspecified; Z88.2 Allergy status to sulfonamides; Z79.899 Other long term (current) drug therapy
CPT/HCPCS: 99283; J1885

== ENCOUNTER → 2022-12-05 | Outpatient (CLI) | payer OTHER ==
[~2022-12-05] MED LIST changes: +CYCL5TAB PO; +ESCI10TA16; -ESCI10TA2; +LABE100T6 PO; -LABE10TAB PO; -LABE200T32 PO; +LABE200T5 PO
[2022-12-05 14:17] LABS: HEMATOCRIT 38.9 % (36.0-47.0); HEMOGLOBIN 12.4 g/dl (12.0-15.5); MEAN CORPUSCULAR HEMOGLOBIN 25.9 pg (27.0-33.0); MEAN CORPUSCULAR HGB CONC 31.9 g/dl (32.0-36.5); MEAN CORPUSCULAR VOLUME 81.4 fl (80.0-96.0); PLATELET COUNT, AUTOMATED 304 10^3/uL (150-450); RED BLOOD COUNT 4.78 10^6/uL (4.00-5.40); WHITE BLOOD COUNT 8.9 10^3/uL (4.0-10.0)
[2022-12-05 15:07] LABS: HIV 1&2 SCREEN NEGATIVE (NEGATIVE)
[2022-12-05 15:15] LABS: HEPATITIS C VIRUS ABY INDEX 0.1 INDEX (<0.8)
[2022-12-05 15:43] LABS: GC DNA AMPLIFICATION NEGATIVE (NEGATIVE)
== END ==
LOC: M PLALAB 09:15
PROVIDERS: ATTEND Specialist
DX: Z34.81 Encounter for supervision of other normal pregnancy, first trimester (principal)

== ENCOUNTER 2022-12-31 18:27 | Emergency (ER) | payer OTHER ==
[~2022-12-31] VITALS: Ht 172.7 cm; Wt 180.9 kg
[2022-12-31 21:13] LABS: APPEARANCE, URINE HAZY (CLEAR); BACTERIA, URINE AUTO NEGATIVE (NEGATIVE); BILIRUBIN, URINE AUTO NEGATIVE (NEGATIVE); BLOOD, URINE BLOOD NEGATIVE (NEGATIVE); COLOR, URINE YELLOW (YELLOW); GLUCOSE, URINE (UA) AUTO NEGATIVE (NEGATIVE); KETONE, URINE AUTO TRACE mg/dL (NEGATIVE); LEUKOCYTE ESTERASE, URINE AUTO NEGATIVE (NEGATIVE); MUCUS, URINE SMALL (NEGATIVE); NITRITE, URINE AUTO NEGATIVE (NEGATIVE); PROTEIN, URINE AUTO NEGATIVE (NEGATIVE); RBC, URINE AUTO 0 /HPF (0-3); SPECIFIC GRAVITY URINE AUTO 1.012 (1.002-1.035); SQUAMOUS EPITHELIAL CELL UR AU 7 /HPF (0-6); UROBILINOGEN, URINE AUTO 0.2 mg/dL (0.0-2.0); WBC, URINE AUTO 0 /HPF (0-3)
[2022-12-31 21:15] LABS: BASO # 0.1 10^3/uL (0.0-0.2); BASO % 0.5 % (0.0-1.0); EOS # 0.3 10^3/uL (0.0-0.5); EOS % 2.4 % (0.0-3.0); HEMATOCRIT 38.8 % (36.0-47.0); HEMOGLOBIN 12.3 g/dl (12.0-15.5); LYMPH # 2.1 10^3/uL (1.5-5.0); LYMPH % 18.1 % (24.0-44.0); MEAN CORPUSCULAR HEMOGLOBIN 25.4 pg (27.0-33.0); MEAN CORPUSCULAR HGB CONC 31.7 g/dl (32.0-36.5); MONO # 0.8 10^3/uL (0.0-0.8); MONO % 6.8 % (2.0-8.0); NEUTROPHILS # 8.1 10^3/uL (1.5-8.5); NEUTROPHILS % 71.6 % (36.0-66.0); PLATELET COUNT, AUTOMATED 304 10^3/uL (150-450); RED BLOOD COUNT 4.85 10^6/uL (4.00-5.40); WHITE BLOOD COUNT 11.3 10^3/uL (4.0-10.0)
[2022-12-31 21:20] LABS: ALBUMIN 3.2 G/DL (3.2-5.2); ALKALINE PHOSPHATASE 96 U/L (46-116); ALT/SGPT < 9 U/L (7.0-40); AST/SGOT 18 U/L (<34); BILIRUBIN,DIRECT < 0.1 MG/DL (<0.4); BILIRUBIN,TOTAL 0.3 MG/DL (0.3-1.2); TOTAL PROTEIN 6.9 G/DL (5.7-8.2)
[2023-01-01 00:04] VITALS: BP 134/83; TEMP 98.4; O2SAT 99
== END 2023-01-01 00:30 | disposition home or self-care (01) ==
LOC: M ED 18:27
DX: O26.899 Other specified pregnancy related conditions, unspecified trimester (principal); R10.2 Pelvic and perineal pain; O34.11 Maternal care for benign tumor of corpus uteri, first trimester; O13.9 Gestational [pregnancy-induced] hypertension without significant proteinuria, unspecified trimester; Z3A.14 14 weeks gestation of pregnancy; Z88.2 Allergy status to sulfonamides

== ENCOUNTER → 2023-01-05 | Outpatient (REF) | payer OTHER | LOC: M LAB REF 16:14 | PROVIDERS: ATTEND Physician Assistant | DX: B34.9 Viral infection, unspecified (principal) ==

== ENCOUNTER → 2023-01-18 | Outpatient (REF) | payer OTHER | LOC: M LAB REF 21:19 | PROVIDERS: ATTEND Physician Assistant | DX: J02.9 Acute pharyngitis, unspecified (principal) ==

== ENCOUNTER → 2023-02-03 | Outpatient (CLI) | payer OTHER | LOC: M WHC 08:34 | PROVIDERS: ATTEND Obstetrics & Gynecology | DX: Z34.92 Encounter for supervision of normal pregnancy, unspecified, second trimester (principal) ==

== ENCOUNTER → 2023-03-06 | Outpatient (CLI) | payer OTHER | LOC: M WHC 13:48 | PROVIDERS: ATTEND Advanced Practice Midwife | DX: Z34.82 Encounter for supervision of other normal pregnancy, second trimester (principal) ==

== ENCOUNTER → 2023-03-08 | Outpatient (REF) | payer OTHER ==
[2023-03-08 22:24] LABS: APPEARANCE, URINE HAZY (CLEAR); BACTERIA, URINE AUTO NEGATIVE (NEGATIVE); BILIRUBIN, URINE AUTO NEGATIVE (NEGATIVE); BLOOD, URINE BLOOD NEGATIVE (NEGATIVE); CALCIUM OXALATE CRYSTALS SMALL; COLOR, URINE AMBER (YELLOW); GLUCOSE, URINE (UA) AUTO NEGATIVE (NEGATIVE); KETONE, URINE AUTO TRACE mg/dL (NEGATIVE); LEUKOCYTE ESTERASE, URINE AUTO NEGATIVE (NEGATIVE); MUCUS, URINE SMALL (NEGATIVE); NITRITE, URINE AUTO NEGATIVE (NEGATIVE); PROTEIN, URINE AUTO 1+ mg/dL (NEGATIVE); RBC, URINE AUTO 1 /HPF (0-3); SPECIFIC GRAVITY URINE AUTO 1.031 (1.002-1.035); SQUAMOUS EPITHELIAL CELL UR AU 7 /HPF (0-6); WBC, URINE AUTO 2 /HPF (0-3)
[2023-03-09 00:01] LABS: GC DNA AMPLIFICATION NEGATIVE (NEGATIVE)
== END ==
LOC: M LAB REF 21:25
PROVIDERS: ATTEND Physician Assistant
DX: N39.0 Urinary tract infection, site not specified (principal)

== ENCOUNTER → 2023-04-10 | Outpatient (CLI) | payer OTHER | LOC: M WHC 13:16 | PROVIDERS: ATTEND Advanced Practice Midwife | DX: Z34.83 Encounter for supervision of other normal pregnancy, third trimester (principal) ==

== ENCOUNTER → 2023-05-01 | Outpatient (CLI) | payer OTHER | LOC: M WHC 11:03 | PROVIDERS: ATTEND Obstetrics & Gynecology | DX: O34.211 Maternal care for low transverse scar from previous cesarean delivery (principal) ==

== ENCOUNTER → 2023-05-01 | Outpatient (REF) | payer OTHER | LOC: M SFHCWAGY 16:57 | PROVIDERS: ATTEND Obstetrics & Gynecology | DX: R30.0 Dysuria (principal) ==

== ENCOUNTER 2023-05-09 11:37 | Outpatient (CLI) | payer OTHER ==
[~2023-05-09] VITALS: Ht 167.6 cm; Wt 181.3 kg
[2023-05-09 12:20] VITALS: BP 136/92
[2023-05-09] MEDS ORDERED: OMEP40CA4 PO (12:26)
[2023-05-09] MEDS ORDERED: MACR100C43 PO (12:26)
[2023-05-09] MEDS ORDERED: ECOT81TA5 PO (12:26)
[2023-05-09 12:38] VITALS: BP 125/81
[2023-05-09 12:52] VITALS: BP 119/81
[2023-05-09 13:05] LABS: TOTAL PROTEIN,RANDOM URINE 7.5 MG/DL (0.0-14.0)
[2023-05-09 13:09] LABS: CREATININE,RANDOM URINE 55.1 MG/DL
[2023-05-09 13:21] LABS: HEMATOCRIT 33.7 % (36.0-47.0); HEMOGLOBIN 10.8 g/dl (12.0-15.5); MEAN CORPUSCULAR HEMOGLOBIN 24.7 pg (27.0-33.0); MEAN CORPUSCULAR VOLUME 76.9 fl (80.0-96.0); PLATELET COUNT, AUTOMATED 336 10^3/uL (150-450); RED BLOOD COUNT 4.38 10^6/uL (4.00-5.40); WHITE BLOOD COUNT 11.6 10^3/uL (4.0-10.0)
[2023-05-09 13:47] LABS: LDH LACTATE DEHYDROGENASE 256 U/L (120-246)
[2023-05-09 13:48] LABS: ALT/SGPT 15 U/L (7.0-40); AST/SGOT 15 U/L (<34); BILIRUBIN,TOTAL 0.3 MG/DL (0.3-1.2); CREATININE FOR GFR 0.42 MG/DL (0.55-1.30); GLOMERULAR FILTRATION RATE > 60.0 (>60)
== END 2023-05-09 14:00 | disposition home or self-care (01) ==
LOC: M LDO 11:37
PROVIDERS: ATTEND Obstetrics & Gynecology
DX: O16.3 Unspecified maternal hypertension, third trimester (principal); O34.211 Maternal care for low transverse scar from previous cesarean delivery; O99.213 Obesity complicating pregnancy, third trimester; E66.9 Obesity, unspecified; Z87.59 Personal history of other complications of pregnancy, childbirth and the puerperium; Z88.2 Allergy status to sulfonamides; Z3A.32 32 weeks gestation of pregnancy
CPT/HCPCS: 36415; 59025; 82247; 82570; 83615; 84156; 84450; 84460; 84550; 85027; 86850; 86900; 86901; G0463

== ENCOUNTER → 2023-05-29 | Outpatient (CLI) | payer OTHER ==
[~2023-05-29] MED LIST changes: +ECOT81TA5 PO; +MACR100C43 PO; +OMEP40CA4 PO
== END ==
LOC: M WHC 11:12
PROVIDERS: ATTEND Obstetrics & Gynecology
DX: O16.9 Unspecified maternal hypertension, unspecified trimester (principal)

== ENCOUNTER → 2023-05-29 | Outpatient (REF) | payer OTHER ==
[~2023-05-29] MED LIST changes: +OMEP-173 PO
== END ==
LOC: M SFHCWAGY 15:09
PROVIDERS: ATTEND Specialist
DX: O13.3 Gestational [pregnancy-induced] hypertension without significant proteinuria, third trimester (principal); R82.90 Unspecified abnormal findings in urine

== ENCOUNTER → 2023-06-05 | Outpatient (CLI) | payer OTHER | LOC: M WHC 12:59 | PROVIDERS: ATTEND Obstetrics & Gynecology | DX: O13.5 Gestational [pregnancy-induced] hypertension without significant proteinuria, complicating the puerperium (principal); Z36.2 Encounter for other antenatal screening follow-up; Z3A.36 36 weeks gestation of pregnancy ==

== ENCOUNTER → 2024-03-20 | Outpatient (CLI) | payer OTHER ==
[~2024-03-20] MED LIST changes: +COLA100C5 PO
[2024-03-20 11:52] LABS: BASO # 0.1 10^3/uL (0.0-0.2); BASO % 0.5 % (0.0-1.0); EOS # 0.3 10^3/uL (0.0-0.5); HEMATOCRIT 37.7 % (36.0-47.0); HEMOGLOBIN 11.5 g/dl (12.0-15.5); LYMPH # 2.2 10^3/uL (1.5-5.0); LYMPH % 22.4 % (24.0-44.0); MEAN CORPUSCULAR HEMOGLOBIN 23.5 pg (27.0-33.0); MEAN CORPUSCULAR HGB CONC 30.5 g/dl (32.0-36.5); MEAN CORPUSCULAR VOLUME 77.1 fl (80.0-96.0); MONO # 0.7 10^3/uL (0.0-0.8); MONO % 7.4 % (2.0-8.0); NEUTROPHILS # 6.4 10^3/uL (1.5-8.5); NEUTROPHILS % 66.1 % (36.0-66.0); PLATELET COUNT, AUTOMATED 336 10^3/uL (150-450); RED BLOOD COUNT 4.89 10^6/uL (4.00-5.40); WHITE BLOOD COUNT 9.7 10^3/uL (4.0-10.0)
[2024-03-20 12:17] LABS: ALBUMIN 3.4 G/DL (3.2-5.2); ALKALINE PHOSPHATASE 98 U/L (46-116); ALT/SGPT 26 U/L (7.0-40); AST/SGOT 18 U/L (<34); BILIRUBIN,TOTAL 0.3 MG/DL (0.3-1.2); BLOOD UREA NITROGEN 11 MG/DL (9-23); CALCIUM LEVEL 8.9 MG/DL (8.5-10.1); CARBON DIOXIDE LEVEL 29 MMOL/L (20-31); CHLORIDE LEVEL 109 MMOL/L (98-107); CHOLESTEROL LEVEL 143 MG/DL (<200); CHOLESTEROL RISK RATIO 3.36 (<5); CREATININE FOR GFR 0.66 MG/DL (0.55-1.30); GLOMERULAR FILTRATION RATE > 60.0 (>60); GLUCOSE, FASTING 80 MG/DL (60-100); HDL CHOLESTEROL 42.5 MG/DL (>40); LDL CHOLESTEROL 84.5 MG/DL (<100); NON-HDL-C 100.5 MG/DL; POTASSIUM SERUM 4.2 MMOL/L (3.5-5.1); SODIUM LEVEL 141 MMOL/L (136-145); TOTAL PROTEIN 7.2 G/DL (5.7-8.2); TRIGLYCERIDES LEVEL 80 MG/DL (<150)
[2024-03-20 12:21] LABS: APPEARANCE, URINE HAZY (CLEAR); BACTERIA, URINE AUTO NEGATIVE (NEGATIVE); BILIRUBIN, URINE AUTO NEGATIVE (NEGATIVE); BLOOD, URINE BLOOD 2+ (NEGATIVE); COLOR, URINE YELLOW (YELLOW); GLUCOSE, URINE (UA) AUTO NEGATIVE (NEGATIVE); KETONE, URINE AUTO NEGATIVE (NEGATIVE); LEUKOCYTE ESTERASE, URINE AUTO NEGATIVE (NEGATIVE); MUCUS, URINE SMALL (NEGATIVE); NITRITE, URINE AUTO NEGATIVE (NEGATIVE); PROTEIN, URINE AUTO NEGATIVE (NEGATIVE); RBC, URINE AUTO 7 /HPF (0-3); SPECIFIC GRAVITY URINE AUTO 1.018 (1.002-1.035); SQUAMOUS EPITHELIAL CELL UR AU 3 /HPF (0-6); UROBILINOGEN, URINE AUTO 0.2 mg/dL (0.0-2.0); WBC, URINE AUTO 0 /HPF (0-3)
[2024-03-20 12:33] LABS: HEMOGLOBIN A1c 5.5 % (4.0-6.0)
== END ==
LOC: M RAD 09:57
PROVIDERS: ATTEND Physician Assistant
DX: M54.50 Low back pain, unspecified (principal); R60.9 Edema, unspecified

== ENCOUNTER → 2024-05-17 | Outpatient (REF) | payer OTHER ==
[~2024-05-17] MED LIST changes: -CYCL5TAB PO; +CYCL5TAB4 PO
== END ==
LOC: M LAB REF 18:38
PROVIDERS: ATTEND Physician Assistant
DX: B34.9 Viral infection, unspecified (principal)

== ENCOUNTER → 2024-08-05 | Outpatient (CLI) | payer OTHER ==
[2024-08-05 11:31] LABS: BASO # 0.1 10^3/uL (0.0-0.2); BASO % 0.5 % (0.0-1.0); EOS # 0.3 10^3/uL (0.0-0.5); HEMATOCRIT 38.6 % (36.0-47.0); HEMOGLOBIN 11.9 g/dl (12.0-15.5); LYMPH # 2.6 10^3/uL (1.5-5.0); LYMPH % 27.2 % (24.0-44.0); MEAN CORPUSCULAR HEMOGLOBIN 25.2 pg (27.0-33.0); MEAN CORPUSCULAR HGB CONC 30.8 g/dl (32.0-36.5); MEAN CORPUSCULAR VOLUME 81.6 fl (80.0-96.0); MONO # 0.7 10^3/uL (0.0-0.8); MONO % 7.1 % (2.0-8.0); NEUTROPHILS # 5.8 10^3/uL (1.5-8.5); NEUTROPHILS % 61.5 % (36.0-66.0); PLATELET COUNT, AUTOMATED 331 10^3/uL (150-450); RED BLOOD COUNT 4.73 10^6/uL (4.00-5.40); WHITE BLOOD COUNT 9.4 10^3/uL (4.0-10.0)
[2024-08-05 12:00] LABS: THYROID STIMULATING HORMONE 1.349 uIU/ML (0.55-4.78); TOTAL 25(OH) VITAMIN D 23.3 NG/ML (20.0-100.0)
== END ==
LOC: M LAB 10:38
PROVIDERS: ATTEND Surgery
DX: E66.01 Morbid (severe) obesity due to excess calories (principal)

== ENCOUNTER → 2024-10-24 | Outpatient (CLI) | payer OTHER ==
[2024-10-24 12:35] LABS: CHOLESTEROL RISK RATIO 3.99 (<5); HDL CHOLESTEROL 37.8 MG/DL (>40); LDL CHOLESTEROL 97.6 MG/DL (<100); NON-HDL-C 113.2 MG/DL
== END ==
LOC: M LAB 11:17
PROVIDERS: ATTEND Physician Assistant
DX: E66.01 Morbid (severe) obesity due to excess calories (principal)

== ENCOUNTER → 2025-01-09 | Outpatient (CLI) | payer OTHER ==
[~2025-01-09] MED LIST changes: +VALI2TAB PO
== END ==
LOC: M CARPUL 14:10
PROVIDERS: ATTEND Registered Nurse
DX: Z01.810 Encounter for preprocedural cardiovascular examination (principal); R94.31 Abnormal electrocardiogram [ECG] [EKG]

== ENCOUNTER → 2025-04-22 | Outpatient (CLI) | payer OTHER | LOC: M WHC 14:15 | PROVIDERS: ATTEND Surgery | DX: R92.8 Other abnormal and inconclusive findings on diagnostic imaging of breast (principal); N39.0 Urinary tract infection, site not specified; R92.313 Mammographic fatty tissue density, bilateral breasts ==